=== PATIENT | male | born 1990 | race African-American/Black ===

== ENCOUNTER 2016-09-14 00:09 | Emergency (ER) | payer MEDICAID ==
[~2016-09-14] VITALS: Ht 170.2 cm; Wt 86.2 kg
[2016-09-14 00:34] VITALS: BP 130/83
[2016-09-14] MEDS ORDERED: ABILIFY10 MG ORAL (00:42)
--- NOTE | 2016-09-14 00:55 | Emergency Room Report ---
History of Present Illness General Chief Complaint: Behavioral Complaint Source: Patient Present Illness HPI 26YOM walk-in patient with chief complaint of "people stalking me outside." Didnt take Abilify for 2 days for known schizoaffective because "I havent picked up my refill." Denies drug use. Denies SI/HI. Denies other complaints - denies chest pain, SOB, abd pain, fever/chills, urinary complaints. Denies other medical problems. Allergies: Coded Allergies: No Known Allergies (Unverified , 09/14/16) Patient History Past Medical History: psych hx Past Surgical History: none Pertinent Family History: none Social History: Denies: alcohol use, drug use, smoking Immunizations: UTD Reviewed Nursing Documentation: PMH: Agreed, PSxH: Agreed Nursing Documentation-PMH Past Medical History: No History, Except For History Of Psychiatric Problem: Yes - schizoaffective Review of Systems All Other Systems: negative except mentioned in HPI Physical Exam Vital Signs Date Time Temp Pulse Resp B/P Pulse Ox O2 Delivery O2 Flow Rate FiO2 09/14/16 00:34 98.2 94 24 130/83 98 Room Air Sp02 EP Interpretation: reviewed, normal General Appearance: normal inspection, well appearing, no apparent distress, alert, GCS 15, non-toxic Head: normocephalic, atraumatic Eyes: bilateral eye EOMI, bilateral eye PERRL ENT: normal ENT inspection, hearing grossly normal, normal voice Neck: normal inspection, full range of motion, supple, no bony tend Respiratory: normal inspection, lungs clear, normal breath sounds, no respiratory distress, no retraction, no wheezing Cardiovascular #1: regular rate, rhythm, no edema Gastrointestinal: normal inspection, normal bowel sounds, non tender, soft, no guarding, no hernia Genitourinary: no CVA tenderness Musculoskeletal: normal inspection, back normal, normal range of motion, Jovana' s Sign negative Neurologic: normal inspection, alert, oriented x3, responsive, 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 VSS. Afebrile. No other complaints Denies SI/HI Was given dose of abilify here States doesnt need refill Also asking for food, place to sleep ?malingering for food/longterm as well Advised to go [facility] to fill Rx for Abilify Last Vital Signs Date Time Temp Pulse Resp B/P Pulse Ox O2 Delivery O2 Flow Rate FiO2 09/14/16 00:34 98.2 94 24 130/83 98 Room Air Status: improved Disposition: HOME, SELF-CARE SAQIB HERZOG M.D. September 14, 2016 00:55
[2016-09-14 01:13] VITALS: BP 132/87
== END 2016-09-14 01:18 | disposition home or self-care (01) ==
LOC: EMR 00:47
DX: F91.9 Conduct disorder, unspecified (principal); F25.9 Schizoaffective disorder, unspecified
CPT/HCPCS: 99282

== ENCOUNTER 2016-11-19 11:47 | Emergency (ER) | payer MEDICAID ==
[~2016-11-19] VITALS: Ht 167.6 cm; Wt 74.8 kg
[~2016-11-19 11:47] MED LIST: ABILIFY10 MG ORAL
[2016-11-19 12:10] VITALS: BP 121/79
[2016-11-19] MEDS ORDERED: Bacitracin Oint UD TOPIC ONE (12:15)
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
[2016-11-19] MEDS ORDERED: ABILIFY10 MG ORAL (12:26)
[2016-11-19] MEDS ORDERED: LITHIUM CARBON300 MG ORAL (12:26)
[2016-11-19] MEDS ORDERED: BACITRACIN-P28.35 GM TP (12:26)
[2016-11-19 12:38] VITALS: BP 121/79
== END 2016-11-19 12:40 | disposition home or self-care (01) ==
LOC: EMR 12:10
DX: R51 Headache (principal); Z76.0 Encounter for issue of repeat prescription; F31.9 Bipolar disorder, unspecified; S50.811A Abrasion of right forearm, initial encounter; Y04.2XXA Assault by strike against or bumped into by another person, initial encounter; Y93.9 Activity, unspecified; Y92.89 Other specified places as the place of occurrence of the external cause
CPT/HCPCS: 99284

== ENCOUNTER 2016-12-26 11:35 | Emergency (ER) | payer MEDICAID ==
[~2016-12-26] VITALS: Ht 170.2 cm; Wt 65.8 kg
[~2016-12-26 11:35] MED LIST changes: +BACITRACIN-P28.35 GM TP; +LITHIUM CARBON300 MG ORAL
[2016-12-26 11:39] VITALS: BP 122/76
[2016-12-26] MEDS ORDERED: Bacitracin Oint UD TOPIC ONE ×2 (12:09→12:15)
[2016-12-26] MEDS ORDERED: BACITRACIN15 GM TOPIC (12:12)
[2016-12-26 12:19] VITALS: BP 130/80
--- NOTE | 2016-12-27 07:08 | Emergency Room Report ---
History of Present Illness General Chief Complaint: General Complaint Source: Patient Present Illness HPI 26-year-old male presents ED for evaluation. Patient states he has a laceration to his left forearm. Patient does have a psychiatric history in his information is not complete. Patient cannot tell me when he sustained the laceration. Patient will not tell me how he sustained a laceration. Patient does state that his tetanus is up-to-date. Denies any pain. Denies any other injuries. No other aggravating or relieving factors. Denies any associated symptoms Allergies: Coded Allergies: No Known Allergies (Unverified , 09/14/16) Patient History Past Medical History: psych hx Past Surgical History: none Pertinent Family History: none Social History: Denies: smoking, alcohol use, drug use Immunizations: UTD Reviewed Nursing Documentation: PMH: Agreed, PSxH: Agreed Nursing Documentation-PMH Past Medical History: No History, Except For History Of Psychiatric Problem: Yes - bipolar, schizoprenia Review of Systems All Other Systems: negative except mentioned in HPI Physical Exam Vital Signs Date Time Temp Pulse Resp B/P (MAP) Pulse Ox O2 Delivery O2 Flow Rate FiO2 12/26/16 11:39 98.1 65 18 122/76 98 Room Air Sp02 EP Interpretation: reviewed, normal General Appearance: no apparent distress, alert, GCS 15, non-toxic Head: normocephalic, atraumatic Eyes: bilateral eye normal inspection, bilateral eye PERRL ENT: hearing grossly normal, normal pharynx, no angioedema, normal voice Neck: full range of motion, supple/symm/no masses Respiratory: chest non-tender, lungs clear, normal breath sounds, speaking full sentences Cardiovascular #1: regular rate, rhythm, no edema Cardiovascular #2: 2+ carotid (R), 2+ carotid (L), 2+ radial (R), 2+ radial (L) , 2+ dorsalis pedis (R), 2+ dorsalis pedis (L) Gastrointestinal: normal bowel sounds, non tender, soft, non-distended, no guarding, no rebound Rectal: deferred Genitourinary: normal inspection, no CVA tenderness Musculoskeletal: back normal, gait/station normal, normal range of motion, non- tender Neurologic: alert, oriented x3, responsive, motor strength/tone normal, sensory intact, speech normal Psychiatric: judgement/insight normal, memory normal, mood/affect normal, no suicidal/homicidal ideation Reflexes: 3+ bicep (R), 3+ bicep (L), 3+ tricep (R), 3+ tricep (L), 3+ knee (R) , 3+ knee (L) Skin: normal color, warm/dry, well hydrated, laceration - superficial laceration noted to L forearm. Lymphatic: no adenopathy Medical Decision Making Diagnostic Impression: Primary Impression: Superficial laceration ER Course Hospital Course 26-year-old M presents to ED s/p laceration L forearm Clinical course Patient placed on stretcher. After initial history physical exam reveals a male in no acute distress. On exam there is a superficial laceration to the left forearm. No active bleeding. No discharge. No induration. Wound is superficial. Does not require suturing. Wound is cleaned and bacitracin applied. Dressing applied. Diagnosis - superficial laceration Stable and discharged to home with prescription for bacitracin. wound Care instructions given. Followup with PMD. Return to ED if any signs of infection develop Last Vital Signs Date Time Temp Pulse Resp B/P (MAP) Pulse Ox O2 Delivery O2 Flow Rate FiO2 12/26/16 12:19 78 16 130/80 98 Room Air 12/26/16 11:39 98.1 Status: improved Disposition: HOME, SELF-CARE Condition: Stable Scripts Bacitracin (Bacitracin) 28.4 Gm Oint...g. 1 APPLIC TOPIC THREE TIMES A DAY, #28.4 GM Prov: JJ RIVERS M.D. 12/26/16 Referrals: NON PHYSICIAN (PCP) NOT CHOSEN IPA/,REFERRING Patient Instructions: Laceration Care, Adult, [id number] JJ RIVERS M.D. Dec 27, 2016 07:08
== END 2016-12-26 13:00 | disposition home or self-care (01) ==
LOC: EMR 11:57
DX: S51.812A Laceration without foreign body of left forearm, initial encounter (principal); W45.8XXA Other foreign body or object entering through skin, initial encounter; Y92.89 Other specified places as the place of occurrence of the external cause; F31.9 Bipolar disorder, unspecified; F20.9 Schizophrenia, unspecified
CPT/HCPCS: 99283